=== PATIENT | female | born 1995 | race Caucasian/White ===

== ENCOUNTER 2023-03-19 14:38 | Emergency (ER) | payer OTHER ==
[~2023-03-19] VITALS: Ht 160 cm; Wt 59.0 kg
--- OUTSIDE RECORDS SUMMARY | 2023-03-19 14:40 | XMS ---
PreManage Notification: JOSHUA PRADO Security [employer] Events No recent Security Events currently on file [facility] There are no care providers on record at this time. Marcelino has no Care Guidelines for this patient. Germain VISIT COUNT (12 MO.) 1 HUSSEIN [facility] TOTAL 1 NOTE: Visits indicate total known visits. ED/C VISIT TRACKING (12 MO.) 03/19/2023 14:39 H[facility] [place] TYPE: Emergency COMPLAINT: - CHEST PAIN INPATIENT VISIT TRACKING (12 MO.) No inpatient visits to display in this time frame [id number]
[2023-03-19] MEDS ORDERED: VENTOLIN HFA18 GM (14:57)
[2023-03-19] MEDS ORDERED: BUPRENORP-NALO1 EAC1 SL (14:57)
[2023-03-19] MEDS ORDERED: SYMAX-SL0.125 MG SL (15:12)
[2023-03-19] MEDS ORDERED: HYDROXYZINE HCL50 MG PO (15:12)
[2023-03-19] MEDS ORDERED: LOPERAMIDE2 MG PO (15:13)
[2023-03-19] MEDS ORDERED: TYLENOL EXTRA500 MG PO (15:13)
[2023-03-19] MEDS ORDERED: TRAZODONE HCL100 MG PO (15:13)
[2023-03-19 15:27] LABS: BASOPHILS 0.3 % (0-2); EOSINOPHILS 0.3 % (0-6); HEMATOCRIT 48.5 % (35.0-50.0); HEMOGLOBIN 16.5 g/dL (12.0-18.0); MCH 30.1 (27-36); MCV 88.6 fl (81-99); MONOCYTES 7.9 % (0-12); NEUTROPHILS 72.5 % (39-80); PLATELET COUNT 238 K/uL (140-440); RBC 5.48 M/ul (4.3-5.7); RDW 13.6 (10.5-15.0)
[2023-03-19 15:46] LABS: ALBUMIN 3.6 g/dL (3.4-5.0); ALBUMIN/GLOBULIN RATIO 0.95 (1.1-2.4); ANION GAP 14.7 (7-21); BILIRUBIN, TOTAL 0.3 ng/dL (0.2-1.0); BUN/CREATININE RATIO 21.33 (6.0-28.6); CREATININE, SERUM 0.75 mg/dL (0.55-1.02); POTASSIUM 3.7 mmol/L (3.5-5.1); PROTEIN, TOTAL 7.4 g/dL (6.4-8.2)
[2023-03-19 16:16] VITALS: BP 99/69
--- NOTE | 2023-03-20 18:24 | EKG ---
[facility] [address] [place], [place] [address] Signed Normal sinus rhythm with sinus arrhythmia Normal ECG No previous ECGs available Confirmed by MEGAN QUINTANA MD ([id number]) on 03/20/2023 6:24:14 PM Electronically Signed By: MEGAN QUINTANA 03/20/23 1824 PATIENT NAME: JOSHUA PRADO Electrocardiogram DATE OF : 89 PHYSICIAN: MEGAN QUINTANA REPORT #: [id number] REPORT IS CONFIDENTIAL AND NOT TO BE RELEASED WITHOUT AUTHORIZATION
== END 2023-03-19 16:17 | disposition home or self-care (01) ==
LOC: ED 14:38
PROVIDERS: Emergency Medicine
DX: R07.89 Other chest pain (principal); Z79.899 Other long term (current) drug therapy; Z79.51 Long term (current) use of inhaled steroids
CPT/HCPCS: 36415; 71045; 80053; 84484; 85025; 93005; 93010; J1885